=== PATIENT | female | born 1985 | race Two or more races ===

== ENCOUNTER 2017-10-19 18:58 | Emergency (ER) | payer MEDICAID ==
[~2017-10-19] VITALS: Ht 170.2 cm; Wt 86.0 kg
[2017-10-19 19:08] VITALS: BP 115/69
== END 2017-10-19 19:22 | disposition left against medical advice (07) ==
LOC: ER 18:58
DX: R10.31 Right lower quadrant pain (principal)
CPT/HCPCS: 99281

== ENCOUNTER 2019-03-04 23:08 | Emergency (ER) | payer MEDICAID ==
[~2019-03-04] VITALS: Ht 170.2 cm; Wt 97.0 kg
[2019-03-05] MEDS ORDERED: ALBUTEROL (0.083%) 2.5MG/3ML NEB HHN STA (00:32)
[2019-03-05] MEDS ORDERED: SODIUM CHLORIDE 0.9% 1,000 ML IV ONE (00:32)
[2019-03-05] MEDS ORDERED: IPRATROPIUM BROMIDE (0.02%) 0.5MG/2.5ML NEB HHN STA (00:32)
[2019-03-05 01:00] LABS: BASOPHILS % 0.4 % (0.0-2.0); EOSINOPHILS % 1.7 % (0.0-5.0); HEMATOCRIT. 33.3 % (36.0-48.0); HEMOGLOBIN. 11.7 g/dL (12.0-16.0); LYMPHOCYTES % 11.2 % (20.0-50.0); MEAN CORPUSCULAR VOLUME 90.7 fL (81.0-99.0); MEAN PLATELET VOLUME 8.1 fl (7.4-10.4); MONOCYTES % 8.3 % (2.0-8.0); NEUTROPHILS % 78.4 % (40.0-76.0); PLATELET 182 x1000/uL (130-400); RED BLOOD CELL COUNT 3.67 mill/uL (4.2-5.4); RED CELL DISTRIBUTION WIDTH 13.1 % (11.6-14.6)
[2019-03-05 01:07] LABS: CHLORIDE 106 mEq/L (98-107)
[2019-03-05 04:49] VITALS: BP 117/51
== END 2019-03-05 04:51 | disposition home or self-care (01) ==
LOC: ER 23:08
DX: O99.512 Diseases of the respiratory system complicating pregnancy, second trimester (principal); J40 Bronchitis, not specified as acute or chronic; Z3A.25 25 weeks gestation of pregnancy
CPT/HCPCS: 36415; 80053; 83880; 84484; 85025; 93005; 94640; 99284; J7030; J7611; Z7610

== ENCOUNTER 2019-12-20 09:44 | Emergency (ER) | payer MEDICAID ==
[~2019-12-20] VITALS: Ht 170.2 cm; Wt 86.0 kg
[2019-12-20] MEDS ORDERED: SODIUM CHLORIDE 0.9% 1000ML BAG (SEPSIS BOLUS) IV ONE (10:30)
[2019-12-20] MEDS ORDERED: CEFTRIAXONE 1 G PREMIX 50 ML IV ONE (10:30)
[2019-12-20 10:41] LABS: CLARITY URINE CLEAR (CLEAR); COLOR URINE YELLOW (YELLOW); KETONES URINE 1+ (NEGATIVE); LEUKOCYTE ESTERASE URINE 2+ (NEGATIVE); NITRITE URINE POSITIVE (NEGATIVE); OCCULT BLOOD URINE NEGATIVE (NEGATIVE); PH URINE 8.5 (4.5-8.0); PROTEIN URINE NEGATIVE (NEGATIVE); SPECIFIC GRAVITY URINE 1.011 (1.005-1.030)
[2019-12-20 10:59] LABS: BASOPHILS % 0.3 % (0.0-2.0); HEMOGLOBIN. 12.9 g/dL (12.0-16.0); LYMPHOCYTES % 7.3 % (20.0-50.0); MEAN CORPUSCULAR HEMOGLOBIN 30.8 pg (28.0-32.0); MEAN CORPUSCULAR VOLUME 90.6 fL (81.0-99.0); MEAN PLATELET VOLUME 8.6 fl (7.4-10.4); MONOCYTES % 7.5 % (2.0-8.0); NEUTROPHILS % 84.9 % (40.0-76.0); PLATELET 199 x1000/uL (130-400); RED BLOOD CELL COUNT 4.19 mill/uL (4.2-5.4); RED CELL DISTRIBUTION WIDTH 13.7 % (11.6-14.6)
[2019-12-20] MEDS ORDERED: KETOROLAC 30MG/ML VIAL IV ONE (11:00)
[2019-12-20] MEDS ORDERED: ONDANSETRON HCL 4MG/2ML INJ IV ONE (11:00)
[2019-12-20 11:07] LABS: INR 1.1; PROTHROMBIN TIME 11.5 sec (9.6-11.0)
[2019-12-20 11:09] LABS: CHLORIDE 103 mEq/L (98-107)
[2019-12-20 11:13] LABS: HCG SCREEN NEGATIVE
[2019-12-20 15:05] VITALS: BP 118/70
== END 2019-12-20 15:07 | disposition home or self-care (01) ==
LOC: ER 09:44
DX: N10 Acute pyelonephritis (principal); R03.0 Elevated blood-pressure reading, without diagnosis of hypertension
CPT/HCPCS: 36415; 74176; 80053; 81003; 81025; 83605; 83690; 84145; 84703; 85025; 85610; 87040; 87077; 87086; 87186; 96365; 96375; 99285; J0696; J1885; J2405; J7030

== ENCOUNTER 2021-01-14 22:05 | Emergency (ER) | payer MEDICAID ==
[~2021-01-14] VITALS: Ht 170.2 cm; Wt 84.0 kg
[2021-01-14] MEDS ORDERED: IPRATROPIUM BROMIDE (0.02%) 0.5MG/2.5ML NEB HHN STA (23:44)
[2021-01-14] MEDS ORDERED: ALBUTEROL (0.083%) 2.5MG/3ML NEB HHN STA (23:44)
[2021-01-14] MEDS ORDERED: PREDNISONE 20MG TABLET PO STA (23:44)
[2021-01-15] MEDS ORDERED: GUAI237L83 MT (00:39)
[2021-01-15] MEDS ORDERED: ALBU6.7H9 INH (00:39)
[2021-01-15] MEDS ORDERED: P50 MT (00:39)
[2021-01-15 01:10] VITALS: BP 109/72
== END 2021-01-15 01:11 | disposition home or self-care (01) ==
LOC: ER 22:05
DX: J45.901 Unspecified asthma with (acute) exacerbation (principal); Z98.890 Other specified postprocedural states
CPT/HCPCS: 81025; 94640; 99283; J7512; Z7610

== ENCOUNTER 2021-05-05 07:57 | Emergency (ER) | payer MEDICAID ==
[~2021-05-05] VITALS: Ht 170.2 cm; Wt 84.0 kg
[~2021-05-05 07:57] MED LIST: ALBU6.7H9 INH; GUAI237L83 MT; P50 MT
[2021-05-05 07:59] VITALS: BP 112/68
[2021-05-05] MEDS ORDERED: IBUP-2029 MT (08:56)
[2021-05-05] MEDS ORDERED: AMOX-494 MT (08:56)
[2021-05-05] MEDS ORDERED: IBUPROFEN 600MG TABLET PO ONE (09:00)
[2021-05-05] MEDS ORDERED: AMOXICILLIN 500 MG CAPSULE PO ONE (09:00)
== END 2021-05-05 09:16 | disposition home or self-care (01) ==
LOC: ER 07:57
DX: S02.5XXA Fracture of tooth (traumatic), initial encounter for closed fracture (principal); S06.9X0A Unspecified intracranial injury without loss of consciousness, initial encounter; I49.9 Cardiac arrhythmia, unspecified; J45.909 Unspecified asthma, uncomplicated; Z98.890 Other specified postprocedural states; X58.XXXA Exposure to other specified factors, initial encounter; Y93.89 Activity, other specified; Y92.89 Other specified places as the place of occurrence of the external cause; Y99.8 Other external cause status
CPT/HCPCS: 93005; 99283